=== PATIENT | male | born 1990 | race African-American/Black ===

== ENCOUNTER 2017-05-09 07:10 | Emergency (ER) | payer SELFPAY ==
[~2017-05-09] VITALS: Ht 190.5 cm; Wt 115.7 kg
[~2017-05-09 07:10] MED LIST: CIPR500T PO; HYDR-971 PO; KETO10TA PO
--- NOTE | 2017-05-09 07:32 | PHYS DOC ---
Past History Past Medical History: No Pertinent History Past Surgical History: No Surgical History Alcohol Use: Occasionally Drug Use: None Adult General Chief Complaint Chief Complaint: sore throat HPI HPI Patient is a 27 year old male who presents with four-day history of sore throat and nasal congestion cough no fever no vomiting or diarrhea or dysuria frequency or flank pain. Sick contacts at home with other family members. Denies any other medical problems. Review of Systems Review of Systems Constitutional: Denies fever or chills [] Eyes: Denies change in visual acuity, redness, or eye pain [] HENT: Denies nasal congestion or sore throat [] Respiratory: Denies cough or shortness of breath [] Cardiovascular: No additional information not addressed in HPI [] GI: Denies abdominal pain, nausea, vomiting, bloody stools or diarrhea [] : Denies dysuria or hematuria [] Musculoskeletal: Denies back pain or joint pain [] Integument: Denies rash or skin lesions [] Neurologic: Denies headache, focal weakness or sensory changes [] Endocrine: Denies polyuria or polydipsia [] All other systems were reviewed and found to be within normal limits, except as documented in this note. Allergies Allergies Allergies Coded Allergies Type Severity Reaction Last Updated Verified No Known Drug Allergies 01/26/15 No Physical Exam Physical Exam Constitutional: Well developed, well nourished, no acute distress, non-toxic appearance. [] HENT: Normocephalic, atraumatic, bilateral external ears normal, oropharynx moist, no oral exudates, nose normal. Pharyngeal erythema but no swelling [] Eyes: PERRLA, EOMI, conjunctiva normal, no discharge. [] Neck: Normal range of motion, no tenderness, supple, no stridor. Trace anterior cervical lymphadenopathy [] Cardiovascular:Heart rate regular rhythm, no murmur [] Lungs & Thorax: Bilateral breath sounds clear to auscultation [] Abdomen: Bowel sounds normal, soft, no tenderness, no masses, no pulsatile masses. [] Skin: Warm, dry, no erythema, no rash. [] Back: No tenderness, no CVA tenderness. [] Extremities: No tenderness, no cyanosis, no clubbing, ROM intact, no edema. [] Neurologic: Alert and oriented X 3, normal motor function, normal sensory function, no focal deficits noted. [] Psychologic: Affect normal, judgement normal, mood normal. [] EKG EKG [] Radiology/Procedures Radiology/Procedures [] Course & Med Decision Making Course & Med Decision Making Pertinent Labs and Imaging studies reviewed. (See chart for details) Plan to check strep screen. Likely viral. Strep screen negative.] Dragon Disclaimer Dragon Disclaimer This electronic medical record was generated, in whole or in part, using a voice recognition dictation system. Departure Departure: Impression: Primary Impression: Viral URI with cough Additional Impression: Acute viral pharyngitis Disposition: HOME, SELF-CARE Condition: STABLE Referrals: PCP,NO (PCP) Patient Instructions: Upper Respiratory Infection, Adult, [id number] Problem Qualifiers ANN MADRID MD May 09, 2017 07:32
[2017-05-09 08:15] VITALS: BP 132/80
== END 2017-05-09 08:16 | disposition home or self-care (01) ==
LOC: ER 07:10
DX: J02.8 Acute pharyngitis due to other specified organisms (principal); B97.89 Other viral agents as the cause of diseases classified elsewhere
CPT/HCPCS: 87070; 87880; 99283; 99284

== ENCOUNTER 2017-07-01 17:22 | Emergency (ER) | payer OTHER ==
[~2017-07-01] VITALS: Ht 190.5 cm; Wt 115.7 kg
[2017-07-01] MEDS ORDERED: TETANUS AND DIPHTHERIA TOX/PF 0.5 ML VIAL. VAX IM ONE (19:30)
[2017-07-01] MEDS ORDERED: SULF1TAB24 PO (19:51)
--- NOTE | 2017-07-01 19:52 | PHYS DOC ---
Past History Past Medical History: No Pertinent History Past Surgical History: No Surgical History Alcohol Use: None Drug Use: None Adult General Chief Complaint Chief Complaint: FINGER INJURY HPI HPI Patient is a pleasant 27-year-old male who presents with complaints of superficial laceration to finger #2 of the right hand, it occurred 2 days ago. Patient was concerned that he had not been sutured. The injury resulted after striking another object. Patient describes mild swelling in the area but no discharge, no redness, no increased warmth. There is no restriction in movement of the finger nor pain while moving it. Patient thinks his last tetanus was more than 2 years ago Review of Systems Review of Systems Constitutional: Denies fever or chills [] Eyes: Denies injury HENT: Denies injury Respiratory: Denies cough or shortness of breath [] Cardiovascular: No injury[] GI: Denies abdominal pain, nausea, vomiting, bloody stools or diarrhea [] [] Musculoskeletal: As per history of present illness Integument: As per history of present illness [] Neurologic: Denies headache, focal weakness or sensory changes [] All other systems were reviewed and found to be within normal limits, except as documented in this note. Current Medications Current Medications Current Medications Medications (Trade) Dose Ordered Sig/Lona Start Time Stop Time Status Last Admin Dose Admin Tetanus/ Diphtheria Toxoids Adsorbed (Tenivac Vial) 0.5 ml ONCE ONCE 07/01/17 19:30 07/01/17 19:31 DC Allergies Allergies Allergies Coded Allergies Type Severity Reaction Last Updated Verified No Known Drug Allergies 01/26/15 No Physical Exam Physical Exam Constitutional: Well developed, well nourished, no acute distress, non-toxic appearance. [] HENT: Normocephalic, atraumatic, Eyes: EOMI, conjunctiva normal, no discharge. [] Neck: Normal range of motion, trachea midline no stridor. [] Cardiovascular:Heart rate regular rhythm, no murmur, normal perfusion Lungs & Thorax: Bilateral breath sounds clear to auscultation, no tachypnea Abdomen: Bowel sounds normal, soft, no tenderness, no masses, no pulsatile masses. [] Skin: Warm, dry, no erythema, no rash. [] Back: Normal range of motion Extremities: No tenderness, no cyanosis, no clubbing, ROM intact, no edema. Mild swelling right index finger, no discharge, superficial abrasion with no signs of infection, Knavel signs negative x4 Neurologic: Alert and oriented X 3, normal motor function, normal sensory function, no focal deficits noted. [] Psychologic: Affect normal, judgement normal, mood normal. [] Current Patient Data Vital Signs Vital Signs Date Time Temp Pulse Resp B/P (MAP) Pulse Ox O2 Delivery O2 Flow Rate FiO2 07/01/17 18:05 98.3 54 18 97 Room Air EKG EKG [] Radiology/Procedures Radiology/Procedures Preliminary x-ray read no signs of fracture or dislocation[] Course & Med Decision Making Course & Med Decision Making Pertinent Labs and Imaging studies reviewed. (See chart for details) [] Dragon Disclaimer Dragon Disclaimer This electronic medical record was generated, in whole or in part, using a voice recognition dictation system. Departure Departure: Impression: Primary Impression: Finger injury Additional Impression: Abrasion Condition: STABLE Referrals: PCP,JUAN RAMON (PCP) Patient Instructions: Abrasions, Wound Care, [id number] Additional Instructions: His follow-up with your doctor for recheck and reevaluation in 2 days otherwise she may follow-up at one of the clinics in the list provided to you. Scripts Sulfamethoxazole/Trimethoprim (BACTRIM DS TABLET) 1 Each Tablet 2 TAB PO BID for 5 Days, #20 TAB Prov: Karine BOCANEGRA MD 07/01/17 Problem Qualifiers Karine BOCANEGRA MD Jul 01, 2017 19:52
[2017-07-01 20:30] VITALS: BP 138/60
--- NOTE | 2017-07-02 08:28 | RAD ---
Indication: Right index finger injury with laceration. Technique: 3 views of the right index finger Comparison: None Findings: Subtle chip fracture of the medial aspect of the tuft of the distal phalanx of the index finger noted. No extension to the articular surface. Impression: As above.
== END 2017-07-01 20:32 | disposition home or self-care (01) ==
LOC: ER 17:22
DX: S60.410A Abrasion of right index finger, initial encounter (principal); W22.8XXA Striking against or struck by other objects, initial encounter; Y93.89 Activity, other specified; Y99.8 Other external cause status; Y92.89 Other specified places as the place of occurrence of the external cause
CPT/HCPCS: 73140; 90471; 90714; 99284-25

== ENCOUNTER 2017-09-06 13:56 | Emergency (ER) | payer OTHER ==
[~2017-09-06] VITALS: Ht 188 cm; Wt 113.4 kg
[~2017-09-06 13:56] MED LIST changes: +SULF1TAB24 PO
--- NOTE | 2017-09-06 14:02 | PHYS DOC ---
Past History Past Medical History: No Pertinent History Past Surgical History: No Surgical History Alcohol Use: None Drug Use: None Adult General Chief Complaint Chief Complaint: sinus congestion and left ear pain [facility] HPI Patient is a 27 year old and [place] male who presents with 2 weeks of sinus congestion, sore throat and left ear pain. States her last few days he can't hear out of his left ear and it feels like a pressure sensation in the. States he's been having a lot of nasal discharge out of pressure in his frontal sinuses. He denies any fevers chills nausea or vomiting, chest pain shortness of breath or other concerns this time. Review of Systems Review of Systems Constitutional: Denies fever or chills [] Eyes: Denies change in visual acuity, redness, or eye pain [] HENT: Positive for nasal congestion and sore throat [] Respiratory: Denies cough or shortness of breath [] Cardiovascular: No additional information not addressed in HPI [] GI: Denies abdominal pain, nausea, vomiting, bloody stools or diarrhea [] : Denies dysuria or hematuria [] Musculoskeletal: Denies back pain or joint pain [] Integument: Denies rash or skin lesions [] Neurologic: Denies headache, focal weakness or sensory changes [] Endocrine: Denies polyuria or polydipsia [] All other systems were reviewed and found to be within normal limits, except as documented in this note. Allergies Allergies Allergies Coded Allergies Type Severity Reaction Last Updated Verified No Known Drug Allergies 01/26/15 No Physical Exam Physical Exam Constitutional: Well developed, well nourished, no acute distress, non-toxic appearance. [] HENT: Normocephalic, atraumatic, bilateral external ears normal, oropharynx moist, no oral exudates, nose normal. Ear behind the left TM, no erythema appreciated bilaterally, mild tender to palpation frontal sinuses Eyes: PERRLA, EOMI, conjunctiva normal, no discharge. [] Neck: Normal range of motion, no tenderness, supple, no stridor. [] Cardiovascular:Heart rate regular rhythm, no murmur [] Lungs & Thorax: Bilateral breath sounds clear to auscultation [] Abdomen: Bowel sounds normal, soft, no tenderness, no masses, no pulsatile masses. [] Skin: Warm, dry, no erythema, no rash. [] Back: No tenderness, no CVA tenderness. [] Extremities: No tenderness, no cyanosis, no clubbing, ROM intact, no edema. [] Neurologic: Alert and oriented X 3, normal motor function, normal sensory function, no focal deficits noted. [] Psychologic: Affect normal, judgement normal, mood normal. [] EKG EKG [] Radiology/Procedures Radiology/Procedures [] Impressions: Sinusitis Nasal congestion Sore throat Course & Med Decision Making Course & Med Decision Making Pertinent Labs and Imaging studies reviewed. (See chart for details) Vitals were normal. We'll treat for sinusitis since his been going on for close to 2 weeks. Also recommend [id number] Marifer. Return precautions given. Patient's agreeable to the plan and being discharged in stable condition this time. Dragon Disclaimer Dragon Disclaimer This electronic medical record was generated, in whole or in part, using a voice recognition dictation system. Departure Departure: Impression: Primary Impression: Sinusitis Disposition: HOME, SELF-CARE Condition: STABLE Referrals: PCP,JUAN RAMON (PCP) Patient Instructions: Sinusitis Additional Instructions: You were seen today for your nasal congestion, sore throat, left ear discomfort. Your being discharged home with Augmentin for 10 days. This is antibiotics should take care of your sinus infection. You'll also need take Marifer she can purchase [id number] and follow instructions on the packaging. If you develop high fevers, neck stiffness, shortness of breath or other concerns please return back to the emergency department. You should follow -up with your primary care physician within the next 5-7 days. Scripts Amoxicillin/Potassium Clav (AUGMENTIN 875-125 TABLET) 1 Each Tablet 1 TAB PO BID, #20 TAB Prov: ALONSO WHITESIDE MD 09/06/17 Problem Qualifiers Primary Impression: Sinusitis Sinusitis location: frontal Chronicity: acute Recurrence: not specified as recurrent Qualified Codes: J01.10 - Acute frontal sinusitis, unspecified ALONSO WHITESIDE MD Sep 06, 2017 14:02
[2017-09-06] MEDS ORDERED: AMOX1TAB61 PO (14:13)
[2017-09-06 14:23] VITALS: BP 130/64
== END 2017-09-06 14:26 | disposition home or self-care (01) ==
LOC: ER 13:56
DX: J01.10 Acute frontal sinusitis, unspecified (principal)
CPT/HCPCS: 99283

== ENCOUNTER 2018-08-04 21:13 | Emergency (ER) | payer SELFPAY ==
[~2018-08-04 21:13] MED LIST changes: +AMOX1TAB61 PO; +HYDR-3165 PO; -HYDR-971 PO
--- NOTE | 2018-08-04 21:23 | ED.ADGEN ---
Past History Past Medical History: No Pertinent History Past Surgical History: No Surgical History Alcohol Use: None Drug Use: None Adult General Chief Complaint Chief Complaint "... I ve been sick a couple days..." Cough.. fever... just not right.." [facility] HPI Patient is a 28 year old male who presents with headache, fever, nonproductive cough, congestion, pharyngitis and rhinorrhea. No recent travel. No specific ill contacts. No history immunosuppression. Patient normally healthy. Review of Systems Review of Systems Constitutional: Complaints of fever or chills [] Eyes: Denies change in visual acuity, redness, or eye pain [] HENT: Complaints of nasal congestion and sore throat [] Respiratory: History of a nonproductive cough Cardiovascular: No additional information not addressed in HPI [] GI: Denies abdominal pain, nausea, vomiting, bloody stools or diarrhea [] : Denies dysuria or hematuria [] Musculoskeletal: Denies back pain or joint pain [] Integument: Denies rash or skin lesions [] Neurologic: Denies headache, focal weakness or sensory changes [] Endocrine: Denies polyuria or polydipsia [] All other systems were reviewed and found to be within normal limits, except as documented in this note. Family History Family History Noncontributory Current Medications Current Medications See nursing for home meds Allergies Allergies Allergies Coded Allergies Type Severity Reaction Last Updated Verified No Known Drug Allergies 01/26/15 No Physical Exam Physical Exam Constitutional: Well developed, well nourished, mild distress, non-toxic appearance. [] HENT: Normocephalic, atraumatic, bilateral external ears normal, oropharynx moist, pharynx is mildly erythemic, postnasal drainage, no oral exudates, nose swollen turbinates and clear rhinorrhea Eyes: PERRLA, EOMI, conjunctiva normal, no discharge. [] Neck: Normal range of motion, no tenderness, supple, no stridor. [] Cardiovascular:Heart rate regular rhythm, no murmur [] Lungs & Thorax: Bilateral breath sounds equal apex with few scattered wheezes auscultation [] Abdomen: Bowel sounds normal, soft, no tenderness, no masses, no pulsatile masses. [] Skin: Warm, dry, no erythema, no rash. [] Back: No tenderness, no CVA tenderness. [] Extremities: No tenderness, no cyanosis, no clubbing, ROM intact, no edema. [] Neurologic: Alert and oriented X 3, normal motor function, normal sensory function, no focal deficits noted. [] Psychologic: Affect normal, judgement normal, mood normal. [] EKG EKG [] Radiology/Procedures Radiology/Procedures [] Course & Med Decision Making Course & Med Decision Making Pertinent Labs and Imaging studies reviewed. (See chart for details). Patient push fluids. Get adequate rest. Gargle with Listerine. Take Tylenol or ibuprofen for discomfort. Use Benadryl 25-50 mg up 4 times a day for congestion and drainage. Follow-up primary care. Return if any concerns. Patient's strep and flu were negative. [] Final Impression Final Impression 1. Viral syndrome[] Dragon Disclaimer Dragon Disclaimer This electronic medical record was generated, in whole or in part, using a voice recognition dictation system. Dragon Disclaimer This chart was dictated in whole or in part using Voice Recognition software in a busy, high-work load, and often noisy Emergency Department environment. It may contain unintended and wholly unrecognized errors or omissions. Discharge Summary Brief Hospital Course Allergies Allergies Coded Allergies Type Severity Reaction Last Updated Verified No Known Drug Allergies 01/26/15 No Brief Hospital Course Mr. Day is a 28 old male who presented with viral syndrome. Discharge Information Condition at Discharge: Improved, Stable Disposition/Orders: D/C to Home Dischare Medications Active Scripts Active Augmentin 875-125 Tablet (Amoxicillin/Potassium Clav) 1 Each Tablet 1 Tab PO BID Bactrim Ds Tablet (Sulfamethoxazole/Trimethoprim) 1 Each Tablet 2 Tab PO BID 5 Days Ciprofloxacin Hcl 500 Mg Tablet 1 Tab PO BID [place] 5-325 Tablet (Hydrocodone Bit/Acetaminophen) 1 Each Tablet 1-2 Tab PO Q4- 6HRS breakthrough pain Ketorolac Tromethamine 10 Mg Tablet 1 Tab PO PRN Q6HRS PRN take with food or milk Reported No Known Medications Prior To Admisstion (Info) Each 1 Each WILIAM ROBLES MD Aug 04, 2018 21:23
[2018-08-05 04:29] LABS: INFLUENZA A PATIENT NEGATIVE (NEGATIVE); INFLUENZA B PATIENT NEGATIVE (NEGATIVE)
== END 2018-08-05 00:15 | disposition home or self-care (01) ==
LOC: ER 21:13
DX: B34.9 Viral infection, unspecified (principal)
CPT/HCPCS: 87070; 87804; 87880; 99283

== ENCOUNTER 2020-03-14 23:05 | Emergency (ER) | payer BC ==
[~2020-03-14] VITALS: Ht 185.4 cm; Wt 127.4 kg
[2020-03-14 23:05] VITALS: BP 137/81
--- NOTE | 2020-03-14 23:17 | PHYS DOC ---
Past History Past Medical History: No Pertinent History, Anxiety, Bipolar, Depression, GERD Past Surgical History: No Surgical History Alcohol Use: None Drug Use: None General Adult HPI: HPI: ".. I am have abdomen pain.. it goes into my back.. I worried.. I may have liver failure.. I just need to be checked out...".. " I ve been taking that [employer] .. Bodybuilding and testosterone drug... Maybe I have taken too much of it...". I ve had constant discomfort the for past two days..." Patient is a 30 year old male who presents with above hx and complaints generalized abdomen pain. Patient states has some epigastric acid reflux and tenderness in his right upper quadrant. Patient denies any bad food intake. Does take bodybuilding supplements. Patient denies any illicit bodybuilding substances or steroids. Patient has had problems in the past with depression, suicidal ideation, epididymitis, varicoceles,. Patient denies any history of hepatitis. Denies any specific ill contacts. Patient does not smoke. Patient denies any illicit drug use. Patient denies any history of gallbladder issues. No history of travel outside the [place] area. Works out every day. Has follow-up at [facility] in the past. Review of Systems: Review of Systems: Constitutional: Denies fever or chills Eyes: Denies change in visual acuity HENT: Denies nasal congestion or sore throat Respiratory: Denies cough or shortness of breath Cardiovascular: Denies chest pain or edema GI: Denies abdominal pain, nausea, vomiting, bloody stools or diarrhea : Denies dysuria Musculoskeletal: Denies back pain or joint pain Integument: Denies rash Neurologic: Denies headache, focal weakness or sensory changes Endocrine: Denies polyuria or polydipsia Lymphatic: Denies swollen glands Psychiatric: Denies depression or anxiety Heart Score: Risk Factors: Risk Factors: DM, Current or recent (<one month) smoker, HTN, HLP, family history of CAD, obesity. Risk Scores: Score 0 - 3: 2.5% MACE over next 6 weeks - Discharge Home Score 4 - 6: 20.3% MACE over next 6 weeks - Admit for Clinical Observation Score 7 - 10: 72.7% MACE over next 6 weeks - Early Invasive Strategies Family History: Family History: Noncontributory to presentation Current Medications: Current Meds: See nursing for home meds Allergies: Allergies: Allergies Coded Allergies Type Severity Reaction Last Updated Verified No Known Drug Allergies 01/26/15 No Physical Exam: PE: Constitutional: Well developed, well nourished, no acute distress, non-toxic appearance. [] HENT: Normocephalic, atraumatic, bilateral external ears normal, oropharynx moist, no oral exudates, nose normal. [] Eyes: PERRLA, EOMI, conjunctiva normal, no discharge. [] Neck: Normal range of motion, no tenderness, supple, no stridor. [] Cardiovascular:Heart rate regular rhythm, no murmur [] Lungs & Thorax: Bilateral breath sounds clear to auscultation [] Abdomen: Bowel sounds normal, soft, mild epigastric and right upper quadrant tenderness, no masses, no pulsatile masses. [] Declines rectal exam. Mild rebound to right upper quadrant Skin: Warm, dry, no erythema, no rash. [] Back: No tenderness, no CVA tenderness. [] Extremities: No tenderness, no cyanosis, no clubbing, ROM intact, no edema. No psoas sign. Neurologic: Alert and oriented X 3, normal motor function, normal sensory function, no focal deficits noted. [] Psychologic: Affect anxious, judgement normal, mood normal. [] EKG: EK bpm. No findings acute STEMI with contralateral changes. Some vague wavering baseline. Does have some findings of J-point elevation V2 V3My interpretation EKG shows a sinus rhythm [] Radiology/Procedures: Radiology/Procedures: [][address] [address] IMAGING REPORT Signed PATIENT: GEOVANI GARCIA ACCOUNT: [id number] : 1990 LOCATION: ER AGE: 30 SEX: M EXAM STATUS: REG ER ORD. PHYSICIAN: WILIAM BERMUDEZ MD REASON: pain PROCEDURE: ACUTE ABDOMEN SERIES INDICATION: Reason: pain of abdomen/ Spl. Instructions: / History: COMPARISON: July 18, 2015 IMPRESSION: 5 views of the chest and abdomen obtained. No focal airspace consolidation to suggest pneumonia. Cardiac silhouette is unremarkable. Calcifications in the pelvis could be from phleboliths. Air scattered throughout the large and small bowel in a grossly nonobstructive pattern. Electronically signed by: Khris Ferrer MD (03/15/2020 1:19 AM) [id number] DICTATED AND SIGNED BY: KHRIS FERRER MD DATE: 03/15/20 0119 CC: WILIAM BERMUDEZ MD; PCP,UNKNOWN ~ Course & Med Decision Making: Course & Med Decision Making Pertinent Labs and Imaging studies reviewed. (See chart for details) Patient encouraged to take [id number] Pepcid twice a day. Follow-up primary care. Develop plan for EGD or further evaluation for biliary colic. Patient avoid high-fat foods. Patient be on a clear fluid diet for the next 2 days. Patient has a no solids or milk products. Allow bowel rest. Patient take Tylenol as needed for pain. Patient review ED labs with primary care. Strongly encourage patient avoid further weightlifting or bodybuilding substance for at least 2 weeks. Repeat biliary labs. Return if any concerns. Impression: 1. Biliary colic 2. GERD 3. Mild elevation in bili total 1.3 direct 0.3 and AST 48 4. Elevated creatinine 1.4 [] Dragon Disclaimer: Dragon Disclaimer: This electronic medical record was generated, in whole or in part, using a voice recognition dictation system. Departure Departure: Disposition: 01 HOME/RESIDENCE PRIOR TO ADM Condition: STABLE Referrals: PCP,UNKNOWN (PCP) Scripts Famotidine (PEPCID) 20 Mg Tablet 20 MG PO BID for gastritis, #60 TAB Prov: WILIAM BERMUDEZ MD 03/15/20 Justification of Admission: Justification of Admission: Justification of Admission Dx: N/A Dragon Disclaimer This chart was dictated in whole or in part using Voice Recognition software in a busy, high-work load, and often noisy Emergency Department environment. It may contain unintended and wholly unrecognized errors or omissions. Dragon Disclaimer This chart was dictated in whole or in part using Voice Recognition software in a busy, high-work load, and often noisy Emergency Department environment. It may contain unintended and wholly unrecognized errors or omissions. WILIAM BERMUDZE MD Mar 14, 2020 23:17
[2020-03-14] MEDS ORDERED: FAMOTIDINE 20 MG/2 ML VIAL IVP ONE (23:45)
[2020-03-14] MEDS ORDERED: ONDANSETRON PF 4 MG/2 ML VIAL. IVP ONE (23:45)
[2020-03-14] MEDS ORDERED: IV RINGERS SOLUTION,LACTATED 1,000 ML IV SCH (23:45)
--- NOTE | 2020-03-14 23:50 | EKG ---
[address] [address] Test Date: 2020-03-14 Test Time: 23:40:42 Pat Name: GEOVANI GARCIA Department: Room: Gender: M Director Compliance: : 1990 Requested By: WILIAM BERMUDEZ Order Number: [id number] Reading MD: Measurements Intervals [place] Rate: 60 P: 34 [place]: 198 QRS: 60 QRSD: 84 T: 18 QT: 372 QTc: 372 Interpretive Statements SINUS RHYTHM NORMAL ECG RI6.02 No previous ECG available for comparison
[2020-03-15 00:32] LABS: BASO % 0 % (0-3); EOS % 1 % (0-3); HEMATOCRIT 41.4 % (39.0-53.0); HEMOGLOBIN 13.5 g/dL (13.0-17.5); LYMPH % 28 % (24-48); MEAN CORPUSCULAR HEMOGLOBIN 31 pg (25-35); MEAN CORPUSCULAR HGB CONC 33 g/dL (31-37); MEAN CORPUSCULAR VOLUME 96 fL (79-100); MONO # 0.6 x10^3/uL (0.0-1.1); MONO % 8 % (0-9); NEUT # 4.5 x10^3uL (1.8-7.7); NEUT % 63 % (31-73); PLATELET COUNT 178 x10^3/uL (140-400); RED BLOOD COUNT 4.33 x10^6/uL (4.30-5.70); RED CELL DISTRIBUTION WIDTH 12.7 % (11.5-14.5); WHITE BLOOD COUNT 7.2 x10^3/uL (4.0-11.0)
[2020-03-15 00:39] LABS: BACTERIA,URINE 0 /HPF (0-FEW); BILIRUBIN,URINE NEG (NEG); CLARITY,URINE CLEAR; COLOR,URINE YELLOW; GLUCOSE,URINE NEG (NEG); NITRITE,URINE NEG (NEG); RBC,URINE 0 /HPF (0-2); SQUAMOUS EPITHELIAL CELL,UR OCC /LPF; UROBILINOGEN,URINE 0.2 mg/dL (0.2 mg/dL); WBC,URINE OCC /HPF (0-4)
[2020-03-15 00:40] LABS: CALCIUM 9.6 mg/dL (8.5-10.1); CREATININE 1.4 mg/dL (0.7-1.3); POTASSIUM 3.7 mmol/L (3.5-5.1)
[2020-03-15 00:44] LABS: AMPHETAMINE/METHAMPHETAMINE NEG (NEG); BARBITURATES NEG (NEG); BENZODIAZEPINES NEG (NEG); CANNABINOIDS NEG (NEG); COCAINE NEG (NEG); METHADONE NEG (NEG); OPIATES NEG (NEG); PHENCYCLIDINE NEG (NEG)
[2020-03-15 00:47] LABS: ALBUMIN 4.2 g/dL (3.4-5.0); DIRECT BILIRUBIN 0.3 mg/dL (0.0-0.2); TOTAL BILIRUBIN 1.3 mg/dL (0.2-1.0)
[2020-03-15] MEDS ORDERED: FAMO-63 PO (00:55)
--- NOTE | 2020-03-15 01:22 | RAD ---
INDICATION: Reason: pain of abdomen/ Spl. Instructions: / History: COMPARISON: July 18, 2015 IMPRESSION: 5 views of the chest and abdomen obtained. No focal airspace consolidation to suggest pneumonia. Cardiac silhouette is unremarkable. Calcifications in the pelvis could be from phleboliths. Air scattered throughout the large and small bowel in a grossly nonobstructive pattern. Electronically signed by: Nigel Ferrer MD (03/15/2020 1:19 AM) [id number]
== END 2020-03-15 02:10 | disposition home or self-care (01) ==
LOC: ER 23:05
DX: K80.50 Calculus of bile duct without cholangitis or cholecystitis without obstruction (principal); K21.9 Gastro-esophageal reflux disease without esophagitis; R79.89 Other specified abnormal findings of blood chemistry; E80.6 Other disorders of bilirubin metabolism
CPT/HCPCS: 36415; 74022; 80048; 80076; 80307; 81001; 82150; 83690; 84484; 85025; 85610; 85730; 93005; 96361; 96374; 96375; 99285; J2405; J3490; J7120

== ENCOUNTER 2021-03-15 06:39 | Emergency (ER) | payer BC ==
[~2021-03-15] VITALS: Ht 185.4 cm; Wt 126.6 kg
[~2021-03-15 06:39] MED LIST changes: -CIPR500T PO; +CIPR500T2 PO; +FAMO-63 PO
[2021-03-15 06:45] VITALS: BP 140/83
[2021-03-15] MEDS ORDERED: KETOROLAC 15 MG/ML VIAL. IM ONE (07:15)
[2021-03-15] MEDS ORDERED: CEPH500T PO (07:16)
--- NOTE | 2021-03-15 07:17 | PHYS DOC ---
Past History Past Medical History: Anxiety, Bipolar, Depression, GERD Past Surgical History: No Surgical History Alcohol Use: None Drug Use: None General Adult EDM: Chief Complaint: LOWER EXTREMITY SWELLING HPI: HPI: 31-year-old male presents to the emergency department complaining of left-sided great toe pain with redness. He noticed 24 hours ago that he had a cut in between his first and second toes on the left foot, he is unsure from what. He reports that he feels some pain going from the dorsum of the foot towards his ankle area. He denies any developing redness in the area but notes that his big toe is swollen. He is unsure if he has a diagnosis of gout or not. He denies any acute trauma. The patient denies nausea, vomiting, fever, chest pain, shortness of breath, abdominal pain, recent trauma, or any other complaints. Review of Systems: Review of Systems: ROS is otherwise negative except for what was mentioned in HPI Family History: Family History: Noncontributory Allergies: Allergies: Allergies Coded Allergies Type Severity Reaction Last Updated Verified No Known Drug Allergies 01/26/15 No Physical Exam: PE: Constitutional: No acute distress, non-toxic appearance. Neck: Normal range of motion, supple. Cardiovascular: Heart rate regular rhythm. 2+ dorsalis pedis pulses, capillary refill less than 2 seconds bilateral lower extremities Lungs & Thorax: No respiratory distress, symmetrical expansion. Skin: [Warm, dry, mild redness over the first toe on the left. No crepitus, no induration. Extremities: There is an approximately 1 cm laceration between the first and second toes. No tenderness to the feet, ankles, leg, bilaterally. Appropriate range of motion. No asymmetrical swelling. Ambulates appropriately. Neurologic: Alert and oriented X 3. Normal motor function of the lower extremities bilaterally. Normal sensory function of the lower extremities. No focal deficits noted. GCS 15. Lymph: No palpable lymphadenopathy in the left leg is appreciated. Psychologic: Affect normal, judgment normal, mood normal. Current Patient Data: Labs: My Orders - MANGO HARTLEY DO Procedure Category Date Status Time Foot Left 3v RAD 03/15/21 Resulted 07:10 Ketorolac 15mg Vial PHA 03/15/21 Complete (Toradol 15mg Vial) 07:15 Vital Signs: Vital Signs Date Time Temp Pulse Resp B/P (MAP) Pulse Ox O2 Delivery O2 Flow Rate FiO2 03/15/21 06:45 99.1 81 16 140/83 (102) 98 Room Air Radiology/Procedures: Radiology/Procedures: PROCEDURE: FOOT LEFT 3V EXAM: 3 views of the left foot DATE: 03/15/2021 7:11 AM INDICATION: Reason: infection, laceration between 1st 2nd digit,no injury. swelling / Spl. Instructions: / History: COMPARISON: No Prior FINDINGS: No acute fracture or dislocation. Joint spaces are preserved without significant degenerative/proliferative change. Mild forefoot soft tissue swelling, particularly within the interspace between the first and second toes. No retained radiopaque foreign body. Small plantar calcaneal enthesophyte. IMPRESSION: 1. No acute fracture or dislocation. 2. Mild forefoot soft tissue swelling. 3. Small plantar calcaneal enthesophyte. Electronically signed by: Ashish Baltazar MD (03/15/2021 7:22 AM) Heart Score: C/O Chest Pain: No Course & Med Decision Making: Course & Med Decision Making History and exam are consistent with a left foot cellulitis with nidus from a laceration that is greater 24 hours old in the left first and second webspace t here is nonrepairable due to the time and an unknown occurrence of the wound. The patient was counseled on return precautions for cellulitis including worsening of pain, spreading redness, inability to walk, or any other acute concerns to return to the emergency department. We will start the patient on Keflex at home and advise close observation. Departure Departure: Impression: Primary Impression: Cellulitis of great toe, left Disposition: 01 HOME / SELF CARE / HOMELESS Condition: STABLE Referrals: PCP,UNKNOWN (PCP) Patient Instructions: Cellulitis, [id number] Additional Instructions: You were seen for a skin infection called cellulitis. You should zhanna the area of redness when you get home. If your redness spreads past the marked area at 24 hours you should have it evaluated again. You do not have a focused area of infection called an abscess right now, but you could develop one. If so you will need to have it drained. You should return to the ED immediately if you develop worsening pain, fever, swelling, redness, drainage, any sign of abscess, or any other new or concerning symptoms. Take the entire course of antibiotics as prescribed. You have been given a prescription for Keflex. This medicine is an antibiotic for cellulitis. This medication was sent to the [facility] in [place]. Please take as prescribed for the full course of the prescription. Do not stop taking the medicine early if you feel better, as this could risk building antibiotic resistance and may put you at risk for a more harmful infection later. The most common side effect of antibiotics include nausea, vomiting, diarrhea and rash. Please come to be evaluated if you develop any symptoms that are concerning to you. One major adverse effect of antibiotics is the development of a diarrheal illness called c. diff colitis, if you develop an excessive amount of diarrhea or are concerned about this please return to the ER or consult a physician. You may use NSAID medications such as naproxen or ibuprofen to treat your pain. You may use up to 400-600 mg of ibuprofen 4 times per day, or every 6 hours for the next 3 days to treat your pain. Scripts Cephalexin (CEPHALEXIN) 500 Mg Tablet 1 TAB PO QID for Cellulitis for 10 Days, #40 TAB Prov: MANGO HARTLEY DO 03/15/21 MANGO HARTLEY DO Mar 15, 2021 07:17
--- NOTE | 2021-03-15 07:25 | RAD ---
EXAM: 3 views of the left foot DATE: 03/15/2021 7:11 AM INDICATION: Reason: infection, laceration between 1st 2nd digit,no injury. swelling / Spl. Instruct ions: / History: COMPARISON: No Prior FINDINGS: No acute fracture or dislocation. Joint spaces are preserved without significant degenerative/prolife rative change. Mild forefoot soft tissue swelling, particularly within the interspace between the fir st and second toes. No retained radiopaque foreign body. Small plantar calcaneal enthesophyte. IMPRESSION: 1. No acute fracture or dislocation. 2. Mild forefoot soft tissue swelling. 3. Small plantar calcaneal enthesophyte. Electronically signed by: Ashish Baltazar MD (03/15/2021 7:22 AM) JUNIE
== END 2021-03-15 07:56 | disposition home or self-care (01) ==
LOC: ER 06:39
DX: L03.032 Cellulitis of left toe (principal); F41.9 Anxiety disorder, unspecified; F31.9 Bipolar disorder, unspecified; K21.9 Gastro-esophageal reflux disease without esophagitis
CPT/HCPCS: 73630; 96372; 99283; J1885

== ENCOUNTER 2021-03-17 00:14 | Emergency (ER) | payer BC ==
[~2021-03-17] VITALS: Ht 185.4 cm; Wt 125.6 kg
[~2021-03-17 00:14] MED LIST changes: +CEPH500T PO
--- NOTE | 2021-03-17 00:19 | PHYS DOC ---
Past History Past Medical History: Anxiety, Bipolar, Depression, GERD Past Surgical History: No Surgical History Alcohol Use: None Drug Use: None Adult General HPI HPI Patient is a 31-year-old male who presents with a chief complaint of cut in between his left great toe and second toe that happened a couple days ago. States he was here couple days ago and was started on antibiotics. Patient states it had not really gotten much worse but had not really gotten any better either. So he was worried that the antibiotics were working. Denies any fevers, chest pain, shortness of breath, abdominal pain, nausea, vomiting. Denies any movements of the redness or swelling of his toe. States it is tender about 2 out of 10 but not too bad. States he is taking all his antibiotics as prescribed. States he is not up-to-date on his tetanus vaccination. Review of Systems Review of Systems Review of systems otherwise unremarkable except noted in HPI Allergies Allergies Allergies Coded Allergies Type Severity Reaction Last Updated Verified No Known Drug Allergies 01/26/15 No Physical Exam Physical Exam Constitutional: Well developed, well nourished, no acute distress, non-toxic appearance. [] HENT: Normocephalic, atraumatic, Eyes: conjunctiva normal, no discharge. [] Neck: Normal range of motion, no tenderness, supple, no stridor. [] Cardiovascular:Heart rate regular rhythm, no murmur [] Lungs & Thorax: Bilateral breath sounds clear to auscultation [] Extremities: 1 cm linear laceration between the left great toe and second toe with mild surrounding erythema. Neurologic: Alert and oriented X 3, normal motor function, normal sensory function, no focal deficits noted. [] Psychologic: Affect normal, judgement normal, mood normal. [] EKG EKG [] Radiology/Procedures Radiology/Procedures [] Heart Score C/O Chest Pain: No Risk Factors: Risk Factors: DM, Current or recent (<one month) smoker, HTN, HLP, family history of CAD, obesity. Risk Scores: Risk Factors: DM, Current or recent (<one month) smoker, HTN, HLP, family history of CAD, obesity. Course & Med Decision Making Course & Med Decision Making Patient is a 31-year-old male who presents with a toe laceration Vital signs not concerning. Physical exam noted above. Given a shot of Rocephin. Advised to continue on his Keflex. Updated tetanus vaccination. Cleaned wound and bandaged. Given patient wound management materials and education on wound management at home. Given a work note so he can stay off his foot for couple days as he has to wear boots at work. Advised to follow-up with his primary care in the morning to set up a follow-up visit. Gave return precautions to the ED. Patient grateful, verbalized understanding and agreed with plan of discharge. [] Dragon Disclaimer Dragon Disclaimer This electronic medical record was generated, in whole or in part, using a voice recognition dictation system. Departure Departure: Impression: Primary Impression: Laceration Disposition: HOME / SELF CARE / HOMELESS Condition: GOOD Referrals: PCP,JUAN RAMON (PCP) ARGELIA AAMTO MD Patient Instructions: Wound Care, [id number] Additional Instructions: Thanks for coming into the emergency department tonight and allowing us to take care of you. Please read the attached information carefully to go over the things we discussed. Please continue to take your antibiotics as prescribed and until they are gone. As we discussed please keep the area clean, dry and bandaged. Please try to stay off your foot as much as possible and leave open to the air as much as possible as well. Please follow-up with your primary care physician in the morning to set up a follow-up visit. Please come back to the ED with new or concerning symptoms as discussed. TRINITY GALLOWAY MD Mar 17, 2021 00:19
[2021-03-17 00:29] VITALS: BP 141/89
[2021-03-17] MEDS ORDERED: DIPH,PERTUSS(ACELL),TET VAC/PF 0.5 ML SYRINGE. VAX IM ONE (01:00)
[2021-03-17] MEDS ORDERED: cefTRIAXone IM 1 GM VIAL IM ONE (01:00)
== END 2021-03-17 00:55 | disposition home or self-care (01) ==
LOC: ER 00:14
DX: S91.312A Laceration without foreign body, left foot, initial encounter (principal); F31.9 Bipolar disorder, unspecified; K21.9 Gastro-esophageal reflux disease without esophagitis; F41.9 Anxiety disorder, unspecified; W26.8XXA Contact with other sharp object(s), not elsewhere classified, initial encounter; Y93.89 Activity, other specified; Y92.89 Other specified places as the place of occurrence of the external cause; Y99.8 Other external cause status
CPT/HCPCS: 90471; 90715; 96372; 99284; J0696

== ENCOUNTER 2021-06-29 17:25 | Emergency (ER) | payer BC ==
[~2021-06-29] VITALS: Ht 185.4 cm; Wt 125.6 kg
[2021-06-29 19:04] VITALS: BP 141/89
[2021-06-29 20:29] LABS: INFLUENZA A PATIENT NEGATIVE (NEGATIVE); INFLUENZA B PATIENT NEGATIVE (NEGATIVE)
[2021-06-29] MEDS ORDERED: ONDA4TAB12 PO (20:53)
--- NOTE | 2021-06-29 20:53 | PHYS DOC ---
Past History Past Medical History: Anxiety, Bipolar, Depression, GERD (JOE DAVIS RECORD SYSTEMS ANALYST) Past Surgical History: No Surgical History (JOE DAVIS RECORD SYSTEMS ANALYST) Alcohol Use: None Drug Use: None (JOE DAVIS RECORD SYSTEMS ANALYST) Adult General Chief Complaint Chief Complaint: HEADACHE HPI HPI Patient is a 31-year-old male patient presenting to the ED today requesting a COVID test. Patient states he has a headache, nausea and vomiting, subjective fevers, symptoms began yesterday. He states he was not vaccinated against COVID-19. (JOE DAVIS RECORD SYSTEMS ANALYST) Review of Systems Review of Systems Constitutional: Reports subjective fevers Eyes: Denies change in visual acuity, redness, or eye pain [] HENT: Denies nasal congestion or sore throat [] Respiratory: Denies cough or shortness of breath [] Cardiovascular: No additional information not addressed in HPI [] GI: Reports nausea and vomiting denies abdominal pain, bloody stools or diarrhea [] : Denies dysuria or hematuria [] Musculoskeletal: Denies back pain or joint pain [] Integument: Denies rash or skin lesions [] Neurologic: Reports headache, denies focal weakness or sensory changes [] All other systems were reviewed and found to be within normal limits, except as documented in this note. (JOE DAVIS RECORD SYSTEMS ANALYST) Allergies Allergies Allergies Coded Allergies Type Severity Reaction Last Updated Verified No Known Drug Allergies 01/26/15 No (JOE DAVIS RECORD SYSTEMS ANALYST) Physical Exam Physical Exam Constitutional: Well developed, well nourished, no acute distress, non-toxic appearance. [] HENT: Normocephalic, atraumatic, bilateral external ears normal, oropharynx moist, no oral exudates, nose normal. [] Eyes: PERRLA, EOMI, conjunctiva normal, no discharge. [] Neck: Normal range of motion, no tenderness, supple, no stridor. [] Cardiovascular:Heart rate regular rhythm, no murmur [] Lungs & Thorax: Bilateral breath sounds clear to auscultation [] Abdomen: Bowel sounds normal, soft, no tenderness, no masses, no pulsatile masses. [] Skin: Warm, dry, no erythema, no rash. [] Back: No tenderness, no CVA tenderness. [] Extremities: No tenderness, no cyanosis, no clubbing, ROM intact, no edema. [] Neurologic: Alert and oriented X 3, normal motor function, normal sensory function, no focal deficits noted. [] Psychologic: Affect normal, judgement normal, mood normal. [] (JOE DAVIS APRN) Current Patient Data Vital Signs Vital Signs Date Time Temp Pulse Resp B/P (MAP) Pulse Ox O2 Delivery O2 Flow Rate FiO2 06/29/21 19:04 98.6 81 16 141/89 (106) 97 Room Air Lab Results Laboratory Tests Test 06/29/21 19:25 Influenza Type A (Rapid) Negative (NEGATIVE) Influenza Type B (Rapid) Negative (NEGATIVE) (JOE DAVIS APRN) EKG EKG [] (JOE DAVIS APRN) Radiology/Procedures Radiology/Procedures [] (JOE DAVIS APRN) Heart Score C/O Chest Pain: N/A Risk Factors: Risk Factors: DM, Current or recent (<one month) smoker, HTN, HLP, family history of CAD, obesity. Risk Scores: Risk Factors: DM, Current or recent (<one month) smoker, HTN, HLP, family history of CAD, obesity. (JOE DAVIS APRN) Course & Med Decision Making Course & Med Decision Making Pertinent Labs and Imaging studies reviewed. (See chart for details) This is a 31-year-old male patient with COVID-related symptoms including headache, subjective fevers, nausea and vomiting. Patient is requesting a COVID test which was done. He is unvaccinated against COVID-19. Temperature 98.6, O2 sats 97% on room air and above. Negative influenza a and B. PCR COVID test pending. Discharge to home. Supportive care measures recommended (JOE DAVIS APRN) Dragon Disclaimer Dragon Disclaimer This electronic medical record was generated, in whole or in part, using a voice recognition dictation system. (JOE DAVIS APRN) Departure Departure: Impression: Primary Impression: Person under investigation for COVID-19 Additional Impressions: Headache Nausea and vomiting Disposition: HOME / SELF CARE / HOMELESS Condition: STABLE Referrals: PCP,NO (PCP) Follow-up with your doctor in 1 week Patient Instructions: Headache, FAQs, Nausea and Vomiting, [id number], Viral Infections, [id number] Additional Instructions: You were evaluated in the emergency room with COVID symptoms. Please take Tylenol or Motrin for pain or fever. Push fluids, maintain good hand again. Your COVID PCR test is pending. We will call you when results are back. Quarantine yourself until then. Your influenza test is negative Scripts Ondansetron (ONDANSETRON ODT) 4 Mg Tab.rapdis 1 TAB PO PRN Q6-8HRS, #16 TAB Prov: JOE DAVIS APRN 06/29/21 Attending Signature Attending Signature I have participated in the care of this patient and I have reviewed and agree with all pertinent clinical information above including history, exam, and recommendations. (WILIAM BERMUDEZ MD) Problem Qualifiers Additional Impressions: Headache Headache type: unspecified Headache chronicity pattern: acute headache Intractability: not intractable Qualified Codes: R51.9 - Headache, unspecified Nausea and vomiting Vomiting type: unspecified Qualified Codes: R11.2 - Nausea with vomiting, unspecified JOE DAVIS APRN Jun 29, 2021 20:53 WILIAM BERMUDEZ MD Jul 03, 2021 18:05
== END 2021-06-29 20:59 | disposition home or self-care (01) ==
LOC: ER 17:25
DX: U07.1 COVID-19 (principal); R11.2 Nausea with vomiting, unspecified; K21.9 Gastro-esophageal reflux disease without esophagitis; F41.9 Anxiety disorder, unspecified; F31.9 Bipolar disorder, unspecified
CPT/HCPCS: 87804; 99283; C9803; U0003

== ENCOUNTER 2021-07-13 07:18 | Emergency (ER) | payer BC ==
[~2021-07-13] VITALS: Ht 185.4 cm; Wt 125.6 kg
[~2021-07-13 07:18] MED LIST changes: +ONDA4TAB12 PO
[2021-07-13 07:30] VITALS: BP 113/61
--- NOTE | 2021-07-13 07:35 | PHYS DOC ---
Past History Past Medical History: Anxiety, Bipolar, Depression, GERD Past Surgical History: No Surgical History Alcohol Use: None Drug Use: None Adult General Chief Complaint Chief Complaint: EYE PROBLEMS HPI HPI Patient is a 31-year-old male presenting for eye problems. Reports this is an acute problem. Reports he has been at baseline health but does admit he had recent COVID-19 infection. He reports ever since, he has had red eyes that itch with clear drainage. He has taken Benadryl occasionally with improvement in symptoms. He is concerned he has pinkeye prompting him to come in for evaluation. Denies any vision changes or pain with ocular motor movements Review of Systems Review of Systems Fourteen body systems of review of systems have been reviewed. See HPI for pertinent positives and negative responses, other engel all other systems are negative, non-pertinent or non-contributory Allergies Allergies Allergies Coded Allergies Type Severity Reaction Last Updated Verified No Known Drug Allergies 01/26/15 No Physical Exam Physical Exam Constitutional: Well developed, well nourished, no acute distress, non-toxic appearance. HENT: Normocephalic, atraumatic, bilateral external ears normal, oropharynx moist, no oral exudates, nose normal. Eyes: PERRLA, EOMI, conjunctiva injected bilaterally, no discharge. Neck: Normal range of motion, no tenderness, supple, no stridor. Cardiovascular: Heart rate regular per monitor Lungs & Thorax: No respiratory distress or accessory muscle use, bilateral chest rise Abdomen: Abdomen soft, non-tender, bowel sounds present in all quadrants, no guarding or rebound, nonacute abdomen. Skin: Warm, dry, no erythema, no rash. Back: No tenderness, no CVA tenderness. Extremities: No tenderness, no cyanosis, no clubbing, ROM intact, no edema. Neurologic: Alert and oriented X 3, grossly normal motor & sensory function, no focal deficits noted. Psychologic: Affect normal, judgement normal, mood normal. EKG EKG [] Radiology/Procedures Radiology/Procedures [] Heart Score C/O Chest Pain: No Risk Factors: Risk Factors: DM, Current or recent (<one month) smoker, HTN, HLP, family history of CAD, obesity. Risk Scores: Risk Factors: DM, Current or recent (<one month) smoker, HTN, HLP, family history of CAD, obesity. Course & Med Decision Making Course & Med Decision Making ABCs unremarkable HPI and physical examination nonconcerning for any emergent or surgical issues Disclosed most likely diagnosis of allergic conjunctivitis Discussed role of continued supportive care practices such as antihistamine pill consumption and/or antihistamine eyedrops with saline eyedrops and close PCP and Ortho follow-up in outpatient setting René Disclaimer Dragon Disclaimer This electronic medical record was generated, in whole or in part, using a voice recognition dictation system. Departure Departure: Impression: Primary Impression: Viral conjunctivitis Disposition: HOME / SELF CARE / HOMELESS Condition: STABLE Referrals: OTTO OKEEFE MD (PCP) Patient Instructions: Eye - Viral Conjunctivitis Additional Instructions: As discussed prior to ER departure, you were seen for red eyes that are likely due to viral conjunctivitis in the setting of recent COVID-19 infection. This is self-limiting and nonsevere in nature. With that said it is problematic and bothersome to you and so, it is recommended that you use an antihistamine eyedrop such as Pataday/Optivar/Livostin or equivalent in addition to an [id number] saline tears drop with close PCP and Ortho follow-up if symptoms do not improve within upcoming 48 hours TANYA HOFFMAN DO Jul 13, 2021 07:35
== END 2021-07-13 07:45 | disposition home or self-care (01) ==
LOC: ER 07:18
DX: B30.9 Viral conjunctivitis, unspecified (principal); K21.9 Gastro-esophageal reflux disease without esophagitis; F41.9 Anxiety disorder, unspecified; F31.9 Bipolar disorder, unspecified
CPT/HCPCS: 99282